=== PATIENT | female | born 1995 | race Caucasian/White ===

== ENCOUNTER 2017-07-05 23:17 | Emergency (ER) | payer BC ==
[2017-07-05 23:21] VITALS: BP 133/94; TEMP 97.9
[2017-07-06] MEDS ORDERED: PREDNISONE20 MG PO (00:39)
[2017-07-06 00:48] VITALS: PULSE 135
== END 2017-07-06 00:50 | disposition home or self-care (01) ==
LOC: COL.ER 23:17
DX: T78.1XXA Other adverse food reactions, not elsewhere classified, initial encounter (principal); J45.901 Unspecified asthma with (acute) exacerbation
CPT/HCPCS: J7030; J7512

== ENCOUNTER 2017-12-25 19:24 | Emergency (ER) | payer BC ==
[~2017-12-25] VITALS: Ht 149.9 cm; Wt 59.1 kg
[~2017-12-25 19:24] MED LIST: PREDNISONE20 MG PO
[2017-12-25] MEDS ORDERED: NUVARING VAG RING VG (20:14)
[2017-12-25] MEDS ORDERED: LEXAPRO20 MG PO (20:15)
[2017-12-25] MEDS ORDERED: DESYREL 100MG100 MG PO (20:15)
[2017-12-25] MEDS ORDERED: PREDNISONE20 MG PO (20:16)
[2017-12-25 20:19] LABS: BASO % 0.1 % (0.0-2.0); GRAN # 6.8 (1.4-6.5); GRAN % 88.4 % (42.2-75.2); HEMATOCRIT 39.3 % (35.0-45.0); HEMOGLOBIN 13.2 g/dl (12.0-15.0); LYMPH # 0.5 (1.2-3.4); LYMPH % 6.4 % (20.0-51.0); MEAN CELL VOLUME 87 fl (80.0-95.0); MEAN CORPUSCULAR HEMOGLOBIN 29 pg (26.0-32.0); MEAN CORPUSCULAR HGB CONC 34 g/dl (33.0-37.0); MEAN PLATELET VOLUME 10.1 fl (7.4-10.4); MONO # 0.4 (0.1-0.6); MONO % 4.7 % (1.7-9.3); PLATELET COUNT 247 K/mm3 (130-400); RED BLOOD COUNT 4.51 M/mm3 (4.10-5.30); REDCELL DISTRIBUTION WIDTH-CV 12.6 % (11.5-14.5)
[2017-12-25 20:26] LABS: ALBUMIN 3.9 gm/dL (3.5-5.0); BILIRUBIN,TOTAL 0.2 mg/dL (0.0-1.0); CALCIUM 9.1 mg/dL (8.4-10.2); CREATININE, serum 0.55 mg/dL (0.52-1.25); POTASSIUM 4.3 mmol/L (3.4-5.0); TOTAL PROTEIN 7.4 gm/dL (6.4-8.2)
[2017-12-25 21:22] LABS: COLLECTION METHOD CLEAN CATCH
[2017-12-25 21:28] LABS: MUCOUS Present /lpf; PH 8 (5-8); SQUAMOUS EPITHELIAL 0-2 /hpf; URINE APPEARANCE Clear; URINE BACTERIA Rare /hpf; URINE BILIRUBIN Negative (NEGATIVE); URINE BLOOD Negative (NEGATIVE); URINE COLOR Straw; URINE GLUCOSE 3+ (NEGATIVE); URINE KETONE Negative (NEGATIVE); URINE LEUKOCYTE ESTERASE 2+ (NEGATIVE); URINE NITRATE Negative (NEGATIVE); URINE PROTEIN(semi-quant) Negative (NEGATIVE); URINE RBC 0-2 /hpf; URINE UROBILINOGEN Negative (NEGATIVE)
[2017-12-25] MEDS ORDERED: BACTRIM DS 8001 TAB PO (22:28)
[2017-12-25 23:20] VITALS: BP 115/64; PULSE 108; TEMP 99
== END 2017-12-25 23:20 | disposition home or self-care (01) ==
LOC: COL.ER 19:24
PROVIDERS: Emergency Medicine
DX: I49.3 Ventricular premature depolarization (principal); J06.9 Acute upper respiratory infection, unspecified; R00.2 Palpitations; J45.909 Unspecified asthma, uncomplicated
CPT/HCPCS: J0696; J2060; J7030

== ENCOUNTER → 2018-01-23 | Outpatient (CLI) | payer BC ==
[~2018-01-23] MED LIST changes: +BACTRIM DS 8001 TAB PO; +DESYREL 100MG100 MG PO; +LEXAPRO20 MG PO; +NUVARING VAG RING VG
== END ==
LOC: COL.CARD 11:30
DX: R00.0 Tachycardia, unspecified (principal); R00.1 Bradycardia, unspecified